=== PATIENT | female | born 1945 | race Two or more races ===

== ENCOUNTER 2022-05-14 14:28 | Emergency (ER) | payer MEDICARE, OTHER ==
[~2022-05-14] VITALS: Ht 165.1 cm; Wt 81.0 kg
[2022-05-14 14:36] VITALS: BP 135/78
[2022-05-14] MEDS ORDERED: ACETAMINOPHEN 500 MG TAB PO ONE (15:45)
[2022-05-14] MEDS ORDERED: ACET-1080 PO (16:36)
== END 2022-05-14 17:01 | disposition home or self-care (01) ==
LOC: EDBD 14:28 → ER 14:28
DX: S39.012A Strain of muscle, fascia and tendon of lower back, initial encounter (principal); S13.9XXA Sprain of joints and ligaments of unspecified parts of neck, initial encounter; E11.9 Type 2 diabetes mellitus without complications; F17.210 Nicotine dependence, cigarettes, uncomplicated; Z79.899 Other long term (current) drug therapy; V49.9XXA Car occupant (driver) (passenger) injured in unspecified traffic accident, initial encounter; Y93.89 Activity, other specified; Y92.410 Unspecified street and highway as the place of occurrence of the external cause; Y99.8 Other external cause status
CPT/HCPCS: 72040; 72100